=== PATIENT | female | born 1990 | race Caucasian/White ===

== ENCOUNTER 2020-10-24 18:53 | Emergency (ER) | payer MEDICAID, SELFPAY ==
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
[2020-10-24 19:25] VITALS: BP 134/92; PULSE 93; RESP 18; TEMP 36.3; O2SAT 100; BMI 24.1
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
[2020-10-24 19:31] VITALS: BP 139/94; PULSE 85; RESP 18; O2SAT 100
[2020-10-24] MEDS: naproxen 500 mg Tablet PO (19:45)
[2020-10-24 19:53] VITALS: BP 139/94; PULSE 90; RESP 15; TEMP 36.5; O2SAT 100
== END 2020-10-24 19:56 | disposition home or self-care (01) ==
PROVIDERS: Emergency Provider Emergency Medicine
DX: S13.4XXA Sprain of ligaments of cervical spine, initial encounter (principal); W22.10XA Striking against or struck by unspecified automobile airbag, initial encounter; V89.2XXA Person injured in unspecified motor-vehicle accident, traffic, initial encounter
CPT/HCPCS: 70450; 72125; 99283

== ENCOUNTER → 2021-03-05 10:35 | Outpatient (BNVA) | payer MEDICAID, SELFPAY | PROVIDERS: Visit Provider Nurse Practitioner Family | DX: Z20.822 Contact with and (suspected) exposure to COVID-19 (principal); Z34.90 Encounter for supervision of normal pregnancy, unspecified, unspecified trimester | CPT/HCPCS: 87635 ==

== ENCOUNTER → 2021-09-18 15:40 | Outpatient (BNVA) | payer MEDICAID, SELFPAY | PROVIDERS: Visit Provider Nurse Practitioner Family | DX: J01.00 Acute maxillary sinusitis, unspecified (principal); Z86.32 Personal history of gestational diabetes; R63.8 Other symptoms and signs concerning food and fluid intake; Z13.220 Encounter for screening for lipoid disorders | CPT/HCPCS: 80053; 80061; 83036; 84443 ==

== ENCOUNTER → 2022-02-19 17:02 | Outpatient (BNVA) | payer MEDICAID, SELFPAY | PROVIDERS: PCP Nurse Practitioner Family; Visit Provider Nurse Practitioner Family | DX: R53.83 Other fatigue (principal); N39.0 Urinary tract infection, site not specified; M54.50 Low back pain, unspecified; Z20.822 Contact with and (suspected) exposure to COVID-19; R39.15 Urgency of urination; R63.8 Other symptoms and signs concerning food and fluid intake; E66.9 Obesity, unspecified; J01.00 Acute maxillary sinusitis, unspecified | CPT/HCPCS: 80053; 87635 ==

== ENCOUNTER → 2022-08-14 11:02 | Outpatient (BNVA) | payer MEDICAID, SELFPAY | PROVIDERS: PCP Nurse Practitioner Family; Visit Provider Nurse Practitioner Family | DX: E66.9 Obesity, unspecified (principal); R63.8 Other symptoms and signs concerning food and fluid intake; Z13.220 Encounter for screening for lipoid disorders; E88.81 Metabolic syndrome and other insulin resistance; R68.89 Other general symptoms and signs; Z86.32 Personal history of gestational diabetes | CPT/HCPCS: 80053; 80061; 83036; 84443 ==

== ENCOUNTER → 2023-08-19 11:30 | Outpatient (BNVA) | payer MEDICAID, SELFPAY | PROVIDERS: PCP Nurse Practitioner Family; Visit Provider Nurse Practitioner Family | DX: Z13.220 Encounter for screening for lipoid disorders (principal); E66.9 Obesity, unspecified; R53.83 Other fatigue; Z68.32 Body mass index [BMI] 32.0-32.9, adult | CPT/HCPCS: 80053; 80061; 84443; 85025 ==

== ENCOUNTER → 2024-06-28 12:09 | Outpatient (BNVA) | payer BC, SELFPAY | PROVIDERS: Visit Provider Nurse Practitioner Family | DX: J06.9 Acute upper respiratory infection, unspecified (principal); J32.9 Chronic sinusitis, unspecified; J02.9 Acute pharyngitis, unspecified | CPT/HCPCS: 87071; 87880 ==

== ENCOUNTER → 2024-06-30 11:52 | Outpatient (BNVA) | payer BC, SELFPAY | PROVIDERS: Visit Provider Nurse Practitioner Family | DX: R50.9 Fever, unspecified (principal); J98.8 Other specified respiratory disorders | CPT/HCPCS: 87400 ==

== ENCOUNTER 2024-12-12 13:06 | Emergency (ER) | payer SELFPAY ==
--- NOTE | 2024-12-12 13:07 | XRR_ITS ---
PROCEDURE INFORMATION: Exam: XR Chest Exam date and time: 12/12/2024 2:19 PM Age: 34 years old Clinical indication: Shortness of breath; Additional info: SOB TECHNIQUE: Imaging protocol: Radiologic exam of the chest. Views: 1 view. COMPARISON: CT cervical spin wo con* [id number] 10/24/2020 7:17 PM FINDINGS: Lungs: No focal consolidation. Pleural spaces: No evidence of pneumothorax. No evidence of pleural effusion. Heart/Mediastinum: Cardiomediastinal silhouette is within normal limits. Bones/joints: No evidence of acute osseous abnormality. XR/XR chest 1V portable [id number] IMPRESSION: 1. No acute cardiopulmonary abnormality.
[2024-12-12 13:10] VITALS: BP 120/80; PULSE 117; TEMP 36.8; O2SAT 95; BMI 31.1
--- OUTSIDE RECORDS SUMMARY | 2024-12-12 13:12 | XMS_ITS | Patient Health Record ---
Author Organization [facility] Address [address] [place] [address] Care Team Providers Care Polysomnography Tech Name Role Phone Aparna Antonio Primary Care Provider [phone] Allergies Allergen (clinical drug ingredient) Drug/Non Drug Allergy documented on EMR Reaction Allergy Type Onset Date Status amoxicillin Amoxicillin , Drug Allergy Act hernán ampicillin Ampicillin , Drug Allergy Activ e erythromycin Erythromycin , Drug Allergy A ctive neomycin neomycin , Drug Allergy Active Reason For Referral No Information Medications Medication SIG (Take, Route, Frequency, Duration) Notes Start Date End Date Status ProAir HFA 108 (90 Base) MCG/ACT 2 puff as needed Inhalation every 6 hrs 04/03/2020 Active Fluticasone propionate 0.05 MG/ACTUAT Metered Dose Nasal [place] [Flonase] Fluticasone propionate 0.05 MG/ACTUAT Metered Dose Nasal [place] [Flonase] 05/24/2015 Not-Taking Doxycycline Hyclate 100 MG 1 capsule Orally Twice a day for 7 days 04/03/2020 Active predniSONE 10 MG (21) as directed Orally 04/03/2020 Active atomoxetine 80 MG Oral Capsule atomoxetine 80 MG Oral Capsule 05/16/2017 Not-Taking BuSpar Buspar 05/16/2017 Not-Jez g Immunizations Vaccine Route Administration Date Status Comme nts Influenza (whole), CPT 25449 Inactive Unknown 03/16/2016 Administered Social History Tobacco Use: Social History Observation Description Date Details (start date - stop date) Never Smoker NA - NA xTobacco Use/Smoking Question Answer Notes Are you a nonsmoker Plan Of Treatment No Information Insurance Providers Payer Name Payer Address Payer Phone Subscriber Number Group Number Insured Name Patient Relationship to Insured Coverage Start Date Coverage End Date [place] [address] [place] [phone] [id number] Niesha Hancock Self - patient is the insured Medical (General) History Medical History History ICD Code Problem:Cyst of Bartholin's gland duct ( disorder) , Status :: Active Problem:Tobacco user (finding) , Status :: Active
--- NOTE | 2024-12-12 13:20 | ECG_ITS ---
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 Measurements Intervals [place] Rate: 85 P: 35 CO: 144 QRS: 37 QRSD: 82 T: 47 QT: 339 QTc: 404 Interpretive Statements SINUS RHYTHM No previous ECG available for comparison Electronically Signed On 12-16-2024 09:12:12 CDT by Uziel Herrmann M.D. [id number]
--- NOTE | 2024-12-12 13:50 | ED_ITS ---
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 She states she feels like she has throat swelling been having very hard time getting her breath then. Denies any fever. Associated symptoms: Deny abdominal pain, chest pain, fever(s), nausea or vomiting Related Data Home Medications ?Medication ?Instructions ?Recorded ?Confirmed albuterol sulfate 90 mcg/actuation 2 puff inhalation Q ID PRN 12/12/24 12/12/24 aerosol inhaler Shortness Of Breath Or Wheez ing ibuprofen 200 mg tablet (Advil) 600 mg PO Q6H PRN Feve r Or Pain 12/12/24 12/12/24 oxymetazoline 0.05 % nasal mist 2 spray intranasal Q12 H PRN 12/12/24 12/12/24 (Afrin (oxymetazoline)) Allergic Symptoms Previous Rx's ?Medication ?Instructions ?Recorded albuterol 90 mcg-budesonide 80 2 inh inhalation 6XD GA N shortness 06/28/24 mcg/actuation HFA aerosol inhaler of breath #10.7 gram s (Airsupra) prednisone 50 mg tablet 50 mg PO DAILY #5 tabs 12/12 Allergies Allergy/AdvReac Type Severity Reaction Status Date / Time amoxicillin Allergy ALGY-Anaphy Verified 12/12/24 13:16 laxis ampicillin Allergy ALGY-Anaphy Verified 12/12/24 13:16 laxis bupropion (From Wellbutrin) Allergy ADR-Agitate Verified 12/12/24 13:16 d cefaclor (From Ceclor) Allergy ALGY-Rash Verified 12/12/24 13:16 neomycin Allergy ALGY-Anaphy Verified 12/12/24 13:16 laxis Penicillins Allergy ALGY-Anaphy Verified 12/12/24 13:16 laxis Sulfa (Sulfonamide Allergy ALGY-Anaphy Verified 12/12/24 13:16 Antibiotics) laxis Review of Systems 2 Const: Denies: fever(s), chills, body aches or change in appetite ENMT: Denies: throat pain or dental pain Card: Denies: chest pain Resp: Reports: dyspnea GI: Denies: abdominal pain, nausea, vomiting or diarrhea Musc: Denies: neck pain or back pain Skin/Breast: Denies: rash Neuro: Denies: headache(s) PFSH ED 2 PFSH: Social History Smoking and tobacco/nicotine status: never used tobacco/nicotine Alcohol intake: never Substance/Drug Use: never Lives independently: Yes Household members: family Housing: House Highest education level completed: High School Graduate service: No Current occupational status: employed Physical Exam 2 Const: COMMON NORMALS: no acute distress, patient oriented x3 and healthy appearing HENMT: COMMON NORMALS: normocephalic and atraumatic HEAD & SCALP: n ormocephalic and atraumatic THROAT: posterior oropharynx normal Eye: COMMON NORMALS: Equal, round and reactive pupils present PUPIL: Yes Equal, round and reactive pupils present Neck/C-Spine: COMMON NORMALS: full ROM and supple Chest: COMMONS NORMALS: normal inspection of the chest Resp: COMMON NORMALS: No retractions and No use of accessory muscles A USCULTATION: wheezes Cardio: COMMON NORMALS: regular rate, regular rhythm and No murmurs present (Cardio) RATE: regular rate RHYTHM: regular rhythm GI: COMMON NORMALS: Normal to inspection, nondistended, normoactive bowel sounds present, Soft to palpation, non-tender and no masses PALPATION: Yes Soft to palpation Extremity: COMMON NORMALS: normal to inspection and full ROM Neuro: COMMON NORMALS: patient oriented x3, moves all extremities and no focal motor deficits Psych: COMMON NORMALS: mental status grossly normal, Normal thought process present and cooperative THOUGHT PROCESS: Normal thought process present Skin: COMMON NORMALS: no rashes or lesions noted and no wounds GENERAL SKIN EXAM: no rashes or lesions noted Course 2 Vital Signs: Vital signs: Vital Signs Temperature 98.2 F 12/12/24 13:10 Pulse Rate 89 12/12/24 14:22 Respiratory Rate 15 12/12/24 14:15 Blood Pressure 120/80 12/12/24 13:10 Pulse Oximetry 95 12/12/24 14:15 Oxygen Delivery Me thod Room Air 12/12/24 14:15 MDM - SOB/Dyspnea Medical Decision Making Patient presents here shortness of breath likely asthma exacerbation being exposed to tile dust she feels much improved here no signs of pneumonia we will place her on steroid she is follow-up with PCP and return if worsening. Medical Records I reviewed the patient's medical records. Lab Data I reviewed the patient's lab results. 12/12/24 13:58 12/12/24 13:58 Labs/Radiology: Laboratory Results WBC 9.59 10^3/uL (3.29-11.43) 12/12/24 13:58 RBC 4.47 10^6/uL (3.85-5.65) 12/12/24 13:58 Hgb 13.30 g/dL (11.27-16.99) 12/12/24 13:58 Hct 41.2 % (36-47) 12/12/24 13:58 MCV 92.2 fl (85-98) 12/12/24 13:58 MCH 29.8 pg (27-33) 12/12/24 13:58 MCHC 32.3 g/dL (30-55) 12/12/24 13:58 RDW 13.1 % (12.1-15.1) 12/12/24 13:58 Plt Count 278 10^3/cmm (157-399) 12/12/24 13:58 MPV 9.8 fL (7.4-10.4) 12/12/24 13:58 Neut % (Auto) 66.4 % 12/12/24 13:58 Lymph % (Auto) 20.9 % 12/12/24 13:58 Benzie % (Auto) 10.5 % 12/12/24 13:58 Eos % (Auto) 1.4 % 12/12/24 13:58 Baso % (Auto) 0.5 % 12/12/24 13:58 Neut # (Auto) 6.37 10^3/uL (1.8-7.7) 12/12/24 13:58 Lymph # (Auto) 2.0 10^3/uL (0.8-4.8) 12/12/24 13:58 Benzie # (Auto) 1.0 10^3/uL (0.2-0.9) H 12/12/24 13:58 Eos # (Auto) 0.1 10^3/uL (0.0-0.8) 12/12/24 13:58 Baso # (Auto) 0.1 10^3/uL (0.0-0.1) 12/12/24 13:58 Nucleated RBC % (auto) 0 % 12/12/24 13:58 Nucleated RBCs # 0.0 /100WBC 12/12/24 13:58 Sodium 139 mmol/L (136-145) 12/12/24 13:58 Potassium 3.8 mmol/L (3.5-5.1) 12/12/24 13:58 Chloride 105 mmol/L (98-107) 12/12/24 13:58 Carbon Dioxide 21 mmol/L (22-29) L 12/12/24 13:58 Anion Gap 16.8 (5-19) 12/12/24 13:58 BUN 7 mg/dL (6-20) 12/12/24 13:58 Creatinine 0.5 mg/dL (0.5-0.9) 12/12/24 13:58 GFR Calculation 140.4 mL/min (90-130) H 12/12/24 13:58 Glucose 82 mg/dL (65-115) 12/12/24 13:58 Calculated Osmolality 285 mOsm/kg (285-295) 12/12/24 13:58 Calcium 9.2 mg/dL (8.5-10.5) 12/12/24 13:58 Total Bilirubin 0.2 mg/dL (0.15-1.2) 12/12/24 13:58 AST 11 U/L (0-32) 12/12/24 13:58 ALT 12 U/L (0-33) 12/12/24 13:58 Alkaline Phosphatase 97 U/L (35-105) 12/12/24 13:58 Total Protein 7.1 g/dL (6.6-8.7) 12/12/24 13:58 Albumin 4.0 g/dL (3.5-5.2) 12/12/24 13:58 Globulin 3.1 g/dL (1.3-4.6) 12/12/24 13:58 All radiology interpretation(s) finalized by discharge EKG Data EKG 1: I personally reviewed and interpreted this EKG as follows: EKG Interpretation Date: 12/12/24 EKG interpretation time: 13:20 Interpretation: nsr hr [address] elevation qrs 82 qtc 381 Discharge Plan Discharge Patient Disposition: Home Clinical Impression: Acute asthma exacerbation Condition: Stable Prescriptions: New prednisone 50 mg tablet 50 mg PO DAILY Qty: 5 0RF No Action Airsupra 90-80 mcg/actuation HFA aerosol inhaler 2 inh inhalation 6XD PRN (Reason: shortness of breath) Qty: 10.7 2RF ibuprofen [Advil] 200 mg Tablet 600 mg PO Q6H PRN (Reason: Fever Or Pain) Afrin (oxymetazoline) 0.05 % Mist 2 spray INTRANASAL Q12H PRN (Reason: Allergic Symptoms) albuterol sulfate 90 mcg/actuation Hfa Aerosol Inhaler 2 puff INHALATION QID PRN (Reason: Shortness Of Breath Or Wheezing) Discharge Orders: Discharge ED (Routine); Ordered 12/12/24 Ordered By: Lucy Mendez Discharge Diet: Advance as tolerated Discharge Activity: Resume usual activity Patient Instructions: Asthma Exacerbation - Adult Stand Alone Forms: Work/School Release Print Language: Stateless Coding Level of Care Code ED Corporate Training Manager for Dickson Rhoades
[2024-12-12 14:03] LABS: Basophils # 0.1 10^3/uL (0.0-0.1); Basophils % 0.5 %; Eosinophils # 0.1 10^3/uL (0.0-0.8); Eosinophils % 1.4 %; Hematocrit 41.2 % (36-47); Lymphocytes % 20.9 %; Mean Corpuscular HGB Conc 32.3 g/dL (30-55); Mean Corpuscular Hemoglobin 29.8 pg (27-33); Mean Corpuscular Volume 92.2 fl (85-98); Mean Platelet Volume 9.8 fL (7.4-10.4); Monocytes % 10.5 %; Neutrophils # 6.37 10^3/uL (1.8-7.7); Neutrophils % 66.4 %; Nucleated Red Blood Cells % 0 %; Platelet Count 278 10^3/cmm (157-399); Red Blood Count 4.47 10^6/uL (3.85-5.65); Red Cell Distribution Width 13.1 % (12.1-15.1); White Blood Count 9.59 10^3/uL (3.29-11.43)
[2024-12-12] MEDS: ipratropium-albuterol 3 mL Neb INHALATION (14:13)
[2024-12-12 14:15] VITALS: PULSE 86; RESP 15; O2SAT 95
[2024-12-12 14:21] LABS: Alanine Aminotransferase 12 U/L (0-33); Alkaline Phosphatase 97 U/L (35-105); Anion Gap 16.8 (5-19); Aspartate Amino Transferase 11 U/L (0-32); Blood Urea Nitrogen 7 mg/dL (6-20); Calcium 9.2 mg/dL (8.5-10.5); Carbon Dioxide 21 mmol/L (22-29); Chloride 105 mmol/L (98-107); Creatinine Clr Calc Pharmacy 150.9922; Globulin 3.1 g/dL (1.3-4.6); Glomerular Filtration Rate 140.4 mL/min (90-130); Glucose 82 mg/dL (65-115); Osmolality Calculated 285 mOsm/kg (285-295); Potassium 3.8 mmol/L (3.5-5.1); Sodium 139 mmol/L (136-145); Total Bilirubin 0.2 mg/dL (0.15-1.2); Total Protein 7.1 g/dL (6.6-8.7)
[2024-12-12 14:22] VITALS: PULSE 89
[2024-12-12] MEDS: EPINEPHrine 1 mg/mL INJ 0.3 MG IM (14:25)
[2024-12-12] MEDS: LORazepam 1 MG/0.5 ML injection IVP (14:25)
[2024-12-12] MEDS: methylPREDNISolone sod succ 125 mg/2 mL INJ IVP (14:25)
[2024-12-12 15:32] VITALS: BP 104/85; PULSE 80; O2SAT 98
== END 2024-12-12 15:33 | disposition home or self-care (01) ==
PROVIDERS: Emergency Provider Emergency Medicine
DX: J45.901 Unspecified asthma with (acute) exacerbation (principal)
CPT/HCPCS: 71045; 80053; 85025; 93005; 94640; 96372; 96374; 99285; J0171; J2060; J2919; J9999